=== PATIENT | male | born 1965 | race Caucasian/White ===

== ENCOUNTER 2022-11-10 08:33 | Day surgery (SDC) | payer OTHER ==
[~2022-11-10] VITALS: Ht 182.9 cm; Wt 125.5 kg
--- NOTE | 2022-11-10 10:14 | NUR ---
11/10/22 1014 Jason Dick 0.05ML OF EPI 1MG/ML ADDED TO 10ML OF ROPIVICAINE 0.5% TO CREATE A SOLUTION OF ROPIVICAINE 0.5% WITH EPI 1:200,000.
== END 2022-11-10 11:40 | disposition home or self-care (01) ==
LOC: ORSCSDS 08:33
PROVIDERS: Orthopaedic Surgery
PROC: 0SBD4ZZ Excision of Left Knee Joint, Percutaneous Endoscopic Approach (ICD-10-PCS; principal; 2022-11-10 10:00)
DX: S83.242A Other tear of medial meniscus, current injury, left knee, initial encounter (principal); S82.242A Displaced spiral fracture of shaft of left tibia, initial encounter for closed fracture; M17.12 Unilateral primary osteoarthritis, left knee; F17.210 Nicotine dependence, cigarettes, uncomplicated; E66.9 Obesity, unspecified; Z68.37 Body mass index [BMI] 37.0-37.9, adult
CPT/HCPCS: J0171; J0690; J1100; J1885; J2250; J2405; J2704; J2765; J2795; J3010; J7120